=== PATIENT | male | born 1935 | race Caucasian/White ===

== ENCOUNTER → 2017-02-01 | Outpatient (CLI) | payer MEDICARE, BC | END | disposition home or self-care (01) | LOC: CFH 09:56 | PROVIDERS: ATTEND Physician Assistant Medical | DX: I25.10 Atherosclerotic heart disease of native coronary artery without angina pectoris (principal) | CPT/HCPCS: 78452; 93017; 93306; A9502 ==

== ENCOUNTER → 2020-09-08 | Outpatient (CLI) | payer MEDICARE, BC | END | disposition home or self-care (01) | LOC: CVU 14:18 | PROVIDERS: ATTEND Internal Medicine Cardiovascular Disease | DX: I65.23 Occlusion and stenosis of bilateral carotid arteries (principal) | CPT/HCPCS: 93880 ==

== ENCOUNTER → 2021-01-05 | Outpatient (CLI) | payer MEDICARE, BC ==
[~2021-01-05] MED LIST: AMOX500T PO; ASPI81TA45 PO; ATOR20TA37 PO; DONE10TA7 PO; FEXO180T15 PO; FINA5TAB4 PO; LEVO25TA4 PO; MELO15TA24 PO; METO25TA91 PO; MONT10TA6 PO; MULT-717 PO; NITR0.4T28 SL; OMEG-14 PO; PANT40TA6 PO; TAMS-11 PO; UBID100C10 PO; UMEC1DIS INH
[2021-01-05 14:26] LABS: BASOPHILS % (AUTO) 1 % (0-1); EOSINOPHILS % (AUTO) 4 % (1-7); LYMPHOCYTES % (AUTO) 22 % (22-44); MEAN CORPUSCULAR HEMOGLOBIN 31.8 pg (27.5-34.5); MEAN PLATELET VOLUME 7.1 fL (7.4-10.4); MONOCYTES % (AUTO) 9 % (2-9); NEUTROPHILS % (AUTO) 65 % (42-75); PLATELET COUNT 210 x10^3/uL (130-400); RED BLOOD COUNT 4.06 x10^6/uL (4.38-5.82); RED CELL DISTRIBUTION WIDTH 14.5 % (9.4-14.8)
[2021-01-05 14:33] LABS: ANION GAP 6 mmol/L (5-15); CALCIUM 8.7 mg/dL (8.5-10.1); CHLORIDE 112 mmol/L (98-107); INTERNATIONAL NORMALIZED RATIO 1.01 (0.93-1.1); PROTHROMBIN TIME 10.8 Seconds (9.6-11.5)
[2021-01-05 14:34] LABS: CREATININE 1.22 mg/dL (0.7-1.3)
[2021-01-05 14:46] LABS: MICROSCOPIC NOT IND
== END | disposition home or self-care (01) ==
LOC: STAR 12:44
PROVIDERS: ATTEND Urology
DX: Z01.818 Encounter for other preprocedural examination (principal); N20.1 Calculus of ureter; I45.2 Bifascicular block; Z20.822 Contact with and (suspected) exposure to COVID-19
CPT/HCPCS: 36415; 80048; 81003; 85025; 85610; 87086; 93005; U0003; U0005

== ENCOUNTER 2021-01-11 13:27 | Day surgery (SDC) | payer MEDICARE, BC ==
[~2021-01-11] VITALS: Ht 188 cm; Wt 91.7 kg
[2021-01-11] MEDS ORDERED: LACTATED RINGERS 1,000 ML IV SCH (14:00)
[2021-01-11] MEDS ORDERED: CHLORHEXIDINE 15 ML UDC PO ONE (14:00)
[2021-01-11] MEDS ORDERED: HYDROmorphone 1 MG/ML, 1ML INJ IVPush PRN (14:30)
[2021-01-11] MEDS ORDERED: PROMETHAZINE 25 MG/ML, 1ML IVPush PRN (14:30)
[2021-01-11] MEDS ORDERED: OXYcodone 5 MG/5 ML ORAL.SOL UDC PO PRN (14:30)
[2021-01-11] MEDS ORDERED: LABETALOL 5MG/ML, 20ML IV PRN (14:30)
[2021-01-11] MEDS ORDERED: LIDOCAINE-MPF 2% ,5ML ONE (14:30)
[2021-01-11] MEDS ORDERED: ACETAMINOPHEN 325 MG TABLET PO PRN (14:30)
[2021-01-11] MEDS ORDERED: EPHEDRINE 50 MG/ML, 1ML IVPush PRN (14:30)
[2021-01-11] MEDS ORDERED: FENTANYL PF 100 MCG/2ML IV PRN (14:30)
[2021-01-11] MEDS ORDERED: hydrALAzine 20 MG/ML, 1ML IV PRN (14:30)
[2021-01-11] MEDS ORDERED: FENTANYL PF 100 MCG/2ML ONE (14:30)
[2021-01-11] MEDS ORDERED: ONDANSETRON 2MG/ML, 2ML IVPush PRN (14:30)
[2021-01-11] MEDS ORDERED: ONDANSETRON 2MG/ML, 2ML ONE (15:03)
[2021-01-11] MEDS ORDERED: PROPOFOL 10 MG/ML, 20ML ONE (15:03)
[2021-01-11] MEDS ORDERED: DEXAMETHASONE 4 MG/ML, 1ML ONE (15:03)
[2021-01-11] MEDS ORDERED: CEFAZOLIN 1,000 MG ONE (15:03)
[2021-01-11] MEDS ORDERED: EPHEDRINE 50 MG/ML, 1ML ONE (15:12)
== END 2021-01-11 17:15 | disposition home or self-care (01) ==
LOC: OUT 13:27
PROVIDERS: ATTEND Urology
DX: N20.1 Calculus of ureter (principal); I25.10 Atherosclerotic heart disease of native coronary artery without angina pectoris; N18.9 Chronic kidney disease, unspecified; N40.1 Benign prostatic hyperplasia with lower urinary tract symptoms; M19.90 Unspecified osteoarthritis, unspecified site; Z79.2 Long term (current) use of antibiotics; Z88.8 Allergy status to other drugs, medicaments and biological substances; Z79.899 Other long term (current) drug therapy; Z72.89 Other problems related to lifestyle; Z87.891 Personal history of nicotine dependence; Z90.49 Acquired absence of other specified parts of digestive tract; Z98.890 Other specified postprocedural states
CPT/HCPCS: 52353; 74018; 82360; 88112; 88300; C1758; C1769; J0690; J1100; J2405; J2704; J3010; J7120